=== PATIENT | female | born 1970 | race Caucasian/White ===

== ENCOUNTER 2020-10-06 17:19 | Emergency (ER) | payer OTHER, SELFPAY ==
--- NOTE | 2020-10-06 17:20 | ED.SKABFB ---
HPI - Skin/Abscess/Foreign Bdy General Chief complaint: Skin/Abscess/Foreign Body Stated complaint: rt thumb laceration Time Seen by Provider: 10/06/20 17:20 Source: patient and RN notes reviewed History of Present Illness HPI narrative: Patient is a 50-year-old female who presents the urgent care with complaints of left thumb lacerations. Patient states that a crockpot broke while she was doing dishes last night and she cut herself in several areas on the left hand. Patient states that she is applied bandages and Neosporin. Denies of any other injuries. No other acute complaints. No acute distress noted. Patient aware of the plan of care. Some parts of this dictation were generated by voice recognition software and may contain typographical and/or grammatical inaccuracies. Related Data Home Medications Medication Instructions Recorded Confirmed No Home Medications 10/06/20 10/06/20 Allergies Allergy/AdvReac Type Severity Reaction Status Date / Time morphine Allergy Mild hives Verified 10/06/20 17:52 Review of Systems Review of Systems: Narrative: CONSTITUTIONAL: Denies fever, chills, or sweats. EYES: Denies visual changes, redness, or discharge. ENT: Denies rhinorrhea, congestion, sore throat, or otalgia. CARDIOVASCULAR: Denies chest pain, palpitations, or edema. RESPIRATORY: Denies cough or dyspnea. GASTROINTESTINAL: Denies abdominal pain, nausea, vomiting, or diarrhea. GENITOURINARY: Denies dysuria or hematuria. SKIN: Reports of lacerations to the left thumb/hand MUSCULOSKELETAL: Denies back pain, joint pain, or myalgia. NEUROLOGIC: Denies headache, numbness, or weakness. All other systems reviewed are negative, except as documented in HPI. [facility] Family History Family History (Updated 04/21/14 @ 07:13 by DOCTOR UNKNOWN) Father Family history of coronary artery disease Social History Social History Smoking status: Never smoker Alcohol intake: current Comments At the time of my signature, I reviewed and agree with the nursing past medical, surgical, social, and family history. There is no relevant family history pertinent to the patient complaint. Exam Narrative: Exam Narrative: GENERAL: This is a well-nourished, well-developed patient, in no apparent distress. HEAD: normocephalic, atraumatic. EYES: PERRL. Sclera clear/white. Vision is grossly intact. EARS: External ears normal NOSE: External nose normal with no obvious nasal discharge, nares without redness, no rhinorrhea. THROAT: Mucous membranes moist NECK: Neck supple SKIN: 1.5 cm linear laceration to the thenar eminence of the left hand without bleeding. 1 cm skin avulsion to the distal tuft of the left thumb, without bleeding. Approximated 0.5 cm linear laceration noted to the tuft of the left index finger, without bleeding NEURO: awake, alert, and oriented to person, place and time. There were no obvious focal neurologic abnormalities. EXTREMITIES: No clubbing, cyanosis, or edema. No joint tenderness, effusion, or edema noted. Capillary refill less than 2 seconds to left upper extremity with positive strong left radial pulse. Course Vital Signs Vital signs: Vital Signs Temperature 98.9 F 10/06/20 17:25 Pulse Rate 89 10/06/20 17:25 Respiratory Rate 16 10/06/20 17:25 Blood Pressure 130/76 10/06/20 17:25 Pulse Oximetry 100 10/06/20 17:25 Temperature 98.9 F 10/06/20 17:25 Pulse Rate 89 10/06/20 17:25 Respiratory Rate 16 10/06/20 17:25 Blood Pressure 130/76 10/06/20 17:25 Pulse Oximetry 100 10/06/20 17:25 Reviewed Procedures Laceration Laceration 1: Site: hand (Left thenar eminence) Side (If applicable): left Description: linear Depth: simple, single layer Pre-repair: irrigated ([employer] normal saline) ====== Skin Level ====== Skin layer closed with: dermabond ====== Subcutaneous Layer ====== ====== Muscle Layer ====== ===
[2020-10-06 17:25] VITALS: BP 130/76; PULSE 89; RESP 16; TEMP 37.2; O2SAT 100
[2020-10-06] MEDS: TETANUS,DIPHTHERIA,AC PERTUSSIS ADULT (0.5 ML) BOOSTRIX IM (17:52)
== END 2020-10-06 17:58 | disposition home or self-care (01) ==
PROVIDERS: Emergency Provider Nurse Practitioner Family; PCP Physician Assistant
DX: S61.011A Laceration without foreign body of right thumb without damage to nail, initial encounter (principal); W26.8XXA Contact with other sharp object(s), not elsewhere classified, initial encounter; Y93.G1 Activity, food preparation and clean up; S61.001A Unspecified open wound of right thumb without damage to nail, initial encounter; Z23 Encounter for immunization; Z90.11 Acquired absence of right breast and nipple
CPT/HCPCS: 12001; 90471; 90715; 99212; G0463